=== PATIENT | male | born 1965 | race Caucasian/White ===

== ENCOUNTER 2016-11-26 18:17 | Emergency (ER) | payer OTHER ==
--- NOTE | 2016-11-26 19:16 | ED ORDER SUMMARY ---
..... Patient: STEWART GAR OrderSheet [facility] VisitID: [id number] [place] [address] 51y, M Registration Date/Time: 11/26/2016 ORDER SHEET Weight: 99.7 kg (stated) Allergies: None GENERAL ORDERS: Splint (UE) (Left) (Metal / foam, Volar) (19:13 11/26/2016 Mp GOMEZ) (19:31 Yaa) Dress Wounds (19:14 11/26/2016 Mp GOMEZ) (19:31 Yaa) MEDICATION ORDERS: Tdap IM 0.5 mL (NOW, per protocol) (18:29 11/26/2016 Alvin R.N. per protocol) (18:38 Alvin R.N.) IV FLUIDS: ORDER SHEET NOTES: [Electronically signed by Abby Dutton R.N. (19:42 11/26/2016)] [Electronically signed by Eric Marcos MD (07:43 11/30/2016)] [Electronically locked/signed by Abby Dutton R.N. (19:42 11/26/2016)]
--- NOTE | 2016-11-26 19:16 | ED ORDER SUMMARY ---
..... Patient: STEWART GAR OrderSheet [facility] VisitID: [id number] [place] [address] 51y, M Registration Date/Time: 11/26/2016 ORDER SHEET Weight: 99.7 kg (stated) Allergies: None GENERAL ORDERS: Splint (UE) (Left) (Metal / foam, Volar) (19:13 11/26/2016 Mp GOMEZ) (19:31 Yaa) Dress Wounds (19:14 11/26/2016 Mp GOMEZ) (19:31 Yaa) MEDICATION ORDERS: Tdap IM 0.5 mL (NOW, per protocol) (18:29 11/26/2016 Alvin R.N. per protocol) (18:38 Alvin R.N.) IV FLUIDS: ORDER SHEET NOTES: [Electronically signed by Abby Dutton R.N. (19:42 11/26/2016)] [Electronically signed by Eric Marcos MD (07:43 11/30/2016)] [Electronically locked/signed by Abby Dutton R.N. (19:42 11/26/2016)]
--- NOTE | 2016-11-26 19:16 | ED NURSING NOTES ---
Clinical Report - Nurses [facility] [address] [place] [address] 11/26/2016 18:20 [id number] Triage time 18:Nov 26 2016. Acuity: LEVEL 4. Chief Complaint: LACERATION. 18:25 11/26/16. 18:11/26/16. Alert. ( Pt cut left pointer finger with a razor blade). ENRIQUE COMA SCORE: Enrique Coma Scale: 15- eyes open spontaneously (4); best verbal response- oriented x 4 (5); best motor response- obeys commands (6). --18:28 Jonny Weaver R.N. 18:24 11/26/16. BP: 201/106. HR: 67. RR: 18. O2 saturation: 98% on room air. Temp: 98.5 F (oral). Pain level now: 0/10. --18:28 Jonny Weaver R.N. Weight: 99.7 kg stated. Height/Length: 70 inches Per Patient. BMI: 31.5. --18:24 Jonny Weaver R.N. Medications Lisinopril Oral (Last dose was in May 2016). --18:27 Jonny Weaver R.N. The following entry was struck and corrected by Jonny Weaver R.N., 18:27 (11/26/16) Reason for correction - other(correction). <<STRICKEN ENTRY-- Lisinopril Oral. --18:27 Jonny Weaver R.N. --END STRIKE>>. Medication/allergy information source: the patient. --18:28 Jonny Weaver R.N. Allergies None. --18:27 Jonny Weaver R.N. History Arrived by private vehicle. Historian: patient. Accompanied by family. Primary physician (RUSSEL DOLL). 18:25 11/26/16. This occurred just prior to arrival. Treatment DEPUTY JUVENILE OFFICER: None. PAST MEDICAL HX: Tetanus status: unknown. Immunizations: up-to-date. SOCIAL HX: Never smoker. Occasional alcohol use. No drug use. No infectious disease exposure. ABUSE ASSESSMENT: No report of abuse. FALL RISK ASSESSMENT: Fall risk assessment completed. No fall risk identified. NUTRITIONAL RISK ASSESSMENT: The nutritional risk assessment revealed no deficiencies. FUNCTIONAL ASSESSMENT: Functional assessment: no impairments noted. LEARNING NEEDS ASSESSMENT: The learning needs assessment revealed no barriers. SKIN INTEGRITY ASSESSMENT: Skin integrity risk assessment completed. No skin integrity risk identified. --18:28 Jonny Weaver R.N. PROBLEMS: Hypertension. --18:27 Jonny Weaver R.N. Tremor. --18:46 Jonny Weaver R.N. ADDITIONAL SURGERIES: Hernia Repair. --18:58 Jonny Weaver R.N. Assessment 18:25 11/26/16. --18:28 Jonny Weaver R.N. Interventions 18:11/26/16. 18:11/26/16. ID and allergy band on patient. To treatment room. --18:28 Jonny Weaver R.N. PHYSICAL ASSESSMENT 18:29 11/26/16. Ambulatory to room. GENERAL / NEURO / PSYCH: Alert. Oriented X 4. Appears in no acute distress. RESPIRATORY: Respirations not labored. CVS: Capillary refill less than 2 seconds. EXTREMITIES: Tip of left index finger: laceration. SKIN: Skin is warm and dry. --18:29 Jonny Weaver R.N. NURSING PROGRESS NOTES 18:11/26/16. The plan of care for this patient has been created. Reassurance given. Two patient identifiers checked. Call light placed in reach. Side rails up x 2. Bed placed in lowest position. Brakes of bed on. --18:29 Jonny Weaver R.N. 18:29 11/26/16. Patient ready for evaluation- chart flagged. --18:29 Jonny Weaver R.N. 18:33 11/26/2016 TDAP IM 0.5 mL given. (Lot#: [id number], expiration date: 10/16/2018, Detonator Assembler: sanofi pasteur). Given in the right deltoid. Allergies verified and confirmed 5 rights. Vaccine information statement provided to the patient. --18:38 Jonny Weaver R.N. 18:38 11/26/16. ( Soaking left hand in water and hibiclens). --18:39 Jonny Weaver R.N. 19:21 11/26/16. Care transferred and report given. --19:21 Jonny Weaver R.N. Metal and volar finger splint applied to left index finger by gisselle (1932). --19:33 Laurie Montano Applied dressing, following the application of antibiotic ointment (bacitracin). Secured with tube gauze. --19:34 Laurie Montano. DISPOSITION / DISCHARGE Departure time: 1939. Condition at departure: improved and stable. No learning barriers present. Discharge instructions provided and reviewed with the patient. Reviewed wound care instructions. Reviewed referrals (pt own primary care). Activity restrictions (minimal use of injured extremity) reviewed. Patient verbalized understanding. Written instructions provided in Emirati. The patient was discharged home and accompanied by spouse. He left the Emergency Department ambulatory and via private vehicle. Patient driving. --19:41 Abby Dutton R.N. 19:40 11/26/16. BP: 180/101. HR: 84. RR: 18. O2 saturation: 100%. Temp: deferred. Pain level now: 0/10. Additional comments: aware of BP and OK with DC. --19:41 Abby Dutton R.N. Locked/Released at 11/26/2016 19:42 by Abby Dutton R.N.
--- NOTE | 2016-11-26 19:16 | ED CLINICAL REPORT ---
Clinical Report - Physicians/Mid Levels [facility] [address] [place] [address] 11/26/2016 18:20 [id number] Time Seen: 18:27 Nov 26 2016. Arrived- By private vehicle. Historian- patient. CPT: ER phys charges level 3 plus (#436296). Up to 2.5 cm simple scalp, neck (#[id number]). HISTORY OF PRESENT ILLNESS Chief Complaint: Injury to the left index finger. The injury happened just prior to arrival. The patient sustained a laceration. Patient is experiencing mild pain. No other injury. REVIEW OF SYSTEMS The patient sustained a laceration. No swelling, tingling, numbness, weakness or foreign body. All systems otherwise negative, except as recorded above. PAST HISTORY See nurses notes. Tetanus immunization status is unknown. Hypertension. Medications: Lisinopril Oral (Last dose was in May 2016). Allergies: None. ADDITIONAL NOTES The nursing notes have been reviewed. PHYSICAL EXAM Vital Signs: 11/26/2016 18:24 BP: 201/106. HR: 67. RR: 18. O2 saturation: 98%. Temp: 98.5 F. Pain level now: 0/10. Skin: Skin warm and dry. Extremities: Left index finger: moderate tenderness and subcutaneous laceration of the distal phalanx- SEE LACERATION PROCEDURE NOTE. Neurovascular intact distally. No swelling. No limitation in movement. No wrist injury. Extremities otherwise negative. Neuro, Vascular and Tendons: Vascular status intact. Sensation intact. Motor intact. Tendon function intact. No functional tendon deficit or tendon injury seen. Neuro: Oriented X 3. No motor deficit. No sensory deficit. PROGRESS AND PROCEDURES Laceration Repair: Location: left index finger. Length: 2.0cm. Complexity: simple (local anesthesia used and sutured). Wound depth/shape- subcutaneous and linear. Wound is clean. Distal neuro/vascular/tendon status normal. No tendon deficit or laceration. Local anesthesia provided using 2% lidocaine with bicarb. Prepped with Hibiclens. Wound explored, cleansed, irrigated and examined to the base in bloodless field extensively with normal saline. Closure of skin: interrupted 5-0 (5 sutures). Post-procedure: he is stable and there are no complications. Bleeding is controlled and neuro-vascular status is intact distal to the wound. Dressing applied. Tetanus immunization up-to-date. Estimated blood loss: 1 mL. Course of Care: Discussed need for follow up blood pressure check. Patient/family counseled. Disposition: Discharged. Condition: stable and improved. CLINICAL IMPRESSION Single deep laceration to the left index finger.No foreign body present or left fingernail injury. Essential hypertension. INSTRUCTIONS Elevate affected areas above chest level today, for one days. Wear aluminum splint until released. Protect wound and keep wound area clean. Change dressing twice daily. Keep wounds dry. You may wash wounds briefly, then dry. Apply neosporin twice daily. Sutures should be removed in ten days. Limit use of your left hand until released. Warnings: GENERAL WARNINGS: Return or contact your physician immediately if your condition worsens or changes unexpectedly, if not improving as expected, or if other problems arise. Your Current Medications: CONTINUE TAKING THE FOLLOWING MEDICATIONS: Lisinopril Oral : Last dose was in May 2016. OTC Medications: Acetaminophen (available over the counter): take according to label instructions. Follow-up: Follow up with your doctor in ten days. Call for an appointment. Understanding of the discharge instructions verbalized by patient. Discharge instructions reviewed with and understanding was verbalized by spouse. (Electronically signed by Eric Marcos MD 11/30/2016 7:44)
--- NOTE | 2016-11-26 19:16 | ED CLINICAL REPORT ---
Clinical Report - Physicians/Mid Levels [facility] [address] [place] [address] 11/26/2016 18:20 [id number] Time Seen: 18:27 Nov 26 2016. Arrived- By private vehicle. Historian- patient. CPT: ER phys charges level 3 plus (#[id number]). Up to 2.5 cm simple scalp, neck (#[id number]). HISTORY OF PRESENT ILLNESS Chief Complaint: Injury to the left index finger. The injury happened just prior to arrival. The patient sustained a laceration. Patient is experiencing mild pain. No other injury. REVIEW OF SYSTEMS The patient sustained a laceration. No swelling, tingling, numbness, weakness or foreign body. All systems otherwise negative, except as recorded above. PAST HISTORY See nurses notes. Tetanus immunization status is unknown. Hypertension. Medications: Lisinopril Oral (Last dose was in May 2016). Allergies: None. ADDITIONAL NOTES The nursing notes have been reviewed. PHYSICAL EXAM Vital Signs: 11/26/2016 18:24 BP: 201/106. HR: 67. RR: 18. O2 saturation: 98%. Temp: 98.5 F. Pain level now: 0/10. Skin: Skin warm and dry. Extremities: Left index finger: moderate tenderness and subcutaneous laceration of the distal phalanx- SEE LACERATION PROCEDURE NOTE. Neurovascular intact distally. No swelling. No limitation in movement. No wrist injury. Extremities otherwise negative. Neuro, Vascular and Tendons: Vascular status intact. Sensation intact. Motor intact. Tendon function intact. No functional tendon deficit or tendon injury seen. Neuro: Oriented X 3. No motor deficit. No sensory deficit. PROGRESS AND PROCEDURES Laceration Repair: Location: left index finger. Length: 2.0cm. Complexity: simple (local anesthesia used and sutured). Wound depth/shape- subcutaneous and linear. Wound is clean. Distal neuro/vascular/tendon status normal. No tendon deficit or laceration. Local anesthesia provided using 2% lidocaine with bicarb. Prepped with Hibiclens. Wound explored, cleansed, irrigated and examined to the base in bloodless field extensively with normal saline. Closure of skin: interrupted 5-0 (5 sutures). Post-procedure: he is stable and there are no complications. Bleeding is controlled and neuro-vascular status is intact distal to the wound. Dressing applied. Tetanus immunization up-to-date. Estimated blood loss: 1 mL. Course of Care: Discussed need for follow up blood pressure check. Patient/family counseled. Disposition: Discharged. Condition: stable and improved. CLINICAL IMPRESSION Single deep laceration to the left index finger.No foreign body present or left fingernail injury. Essential hypertension. INSTRUCTIONS Elevate affected areas above chest level today, for one days. Wear aluminum splint until released. Protect wound and keep wound area clean. Change dressing twice daily. Keep wounds dry. You may wash wounds briefly, then dry. Apply neosporin twice daily. Sutures should be removed in ten days. Limit use of your left hand until released. Warnings: GENERAL WARNINGS: Return or contact your physician immediately if your condition worsens or changes unexpectedly, if not improving as expected, or if other problems arise. Your Current Medications: CONTINUE TAKING THE FOLLOWING MEDICATIONS: Lisinopril Oral : Last dose was in May 2016. OTC Medications: Acetaminophen (available over the counter): take according to label instructions. Follow-up: Follow up with your doctor in ten days. Call for an appointment. Understanding of the discharge instructions verbalized by patient. Discharge instructions reviewed with and understanding was verbalized by spouse. (Electronically signed by Eric Marcos MD 11/30/2016 7:44)
--- NOTE | 2016-11-26 19:16 | ED NURSING NOTES ---
Clinical Report - Nurses [facility] [address] [place] [address] 11/26/2016 18:20 [id number] Triage time 18:Nov 26 2016. Acuity: LEVEL 4. Chief Complaint: LACERATION. 18:25 11/26/16. 18:11/26/16. Alert. ( Pt cut left pointer finger with a razor blade). ENRIQUE COMA SCORE: Enrique Coma Scale: 15- eyes open spontaneously (4); best verbal response- oriented x 4 (5); best motor response- obeys commands (6). --18:28 Jonny Weaver R.N. 18:24 11/26/16. BP: 201/106. HR: 67. RR: 18. O2 saturation: 98% on room air. Temp: 98.5 F (oral). Pain level now: 0/10. --18:28 Jonny Weaver R.N. Weight: 99.7 kg stated. Height/Length: 70 inches Per Patient. BMI: 31.5. --18:24 Jonny Weaver R.N. Medications Lisinopril Oral (Last dose was in May 2016). --18:27 Jonny Weaver R.N. The following entry was struck and corrected by Jonny Weaver R.N., 18:27 (11/26/16) Reason for correction - other(correction). <<STRICKEN ENTRY-- Lisinopril Oral. --18:27 Jonny Weaver R.N. --END STRIKE>>. Medication/allergy information source: the patient. --18:28 Jonny Weaver R.N. Allergies None. --18:27 Jonny Weaver R.N. History Arrived by private vehicle. Historian: patient. Accompanied by family. Primary physician (RUSSEL DOLL). 18:25 11/26/16. This occurred just prior to arrival. Treatment PARK MAINTENANCE TECHNICIAN: None. PAST MEDICAL HX: Tetanus status: unknown. Immunizations: up-to-date. SOCIAL HX: Never smoker. Occasional alcohol use. No drug use. No infectious disease exposure. ABUSE ASSESSMENT: No report of abuse. FALL RISK ASSESSMENT: Fall risk assessment completed. No fall risk identified. NUTRITIONAL RISK ASSESSMENT: The nutritional risk assessment revealed no deficiencies. FUNCTIONAL ASSESSMENT: Functional assessment: no impairments noted. LEARNING NEEDS ASSESSMENT: The learning needs assessment revealed no barriers. SKIN INTEGRITY ASSESSMENT: Skin integrity risk assessment completed. No skin integrity risk identified. --18:28 Jonny Weaver R.N. PROBLEMS: Hypertension. --18:27 Jonny Weaver R.N. Tremor. --18:46 Jonny Weaver R.N. ADDITIONAL SURGERIES: Hernia Repair. --18:58 Jonny Weaver R.N. Assessment 18:25 11/26/16. --18:28 Jonny Weaver R.N. Interventions 18:11/26/16. 18:11/26/16. ID and allergy band on patient. To treatment room. --18:28 Jonny Weaver R.N. PHYSICAL ASSESSMENT 18:29 11/26/16. Ambulatory to room. GENERAL / NEURO / PSYCH: Alert. Oriented X 4. Appears in no acute distress. RESPIRATORY: Respirations not labored. CVS: Capillary refill less than 2 seconds. EXTREMITIES: Tip of left index finger: laceration. SKIN: Skin is warm and dry. --18:29 Jonny Weaevr R.N. NURSING PROGRESS NOTES 18:11/26/16. The plan of care for this patient has been created. Reassurance given. Two patient identifiers checked. Call light placed in reach. Side rails up x 2. Bed placed in lowest position. Brakes of bed on. --18:29 Jonny Weaver R.N. 18:29 11/26/16. Patient ready for evaluation- chart flagged. --18:29 Jonny Weaver R.N. 18:33 11/26/2016 TDAP IM 0.5 mL given. (Lot#: [id number], expiration date: 10/16/2018, Podiatry Doctor: sanofi pasteur). Given in the right deltoid. Allergies verified and confirmed 5 rights. Vaccine information statement provided to the patient. --18:38 Jonny Weaver R.N. 18:38 11/26/16. ( Soaking left hand in water and hibiclens). --18:39 Jonny Weaver R.N. 19:21 11/26/16. Care transferred and report given. --19:21 Jonny Weaver R.N. Metal and volar finger splint applied to left index finger by gisselle (1932). --19:33 Laurie Montano Applied dressing, following the application of antibiotic ointment (bacitracin). Secured with tube gauze. --19:34 Laurie Montano. DISPOSITION / DISCHARGE Departure time: 1939. Condition at departure: improved and stable. No learning barriers present. Discharge instructions provided and reviewed with the patient. Reviewed wound care instructions. Reviewed referrals (pt own primary care). Activity restrictions (minimal use of injured extremity) reviewed. Patient verbalized understanding. Written instructions provided in Portuguese. The patient was discharged home and accompanied by spouse. He left the Emergency Department ambulatory and via private vehicle. Patient driving. --19:41 Abby Dutton R.N. 19:40 11/26/16. BP: 180/101. HR: 84. RR: 18. O2 saturation: 100%. Temp: deferred. Pain level now: 0/10. Additional comments: aware of BP and OK with DC. --19:41 Abby Dutton R.N. Locked/Released at 11/26/2016 19:42 by Abby Dutton R.N.
--- NOTE | 2016-11-30 07:44 | ED MED RECONCILIATION SUMMARY ---
Patient: TSEWART GAR Medication Reconciliation Report [facility] VisitID: [id number] [address] [place] [address] 51y, M Registration Date/Time: 11/26/2016 Weight: 99.7 kg Height/Length: 70 in. BMI: 31.5 ALLERGIES: None The patient's Home Medications are listed below: CONTINUE TAKING THE FOLLOWING MEDICATIONS: Lisinopril Oral, Last dose was in May 2016 The source(s) of the original Home Medication information: patient The following Medications were given to the patient in the Emergency Department: TDAP [IM] IM 0.5 mL, administered: 11/26/2016 6:33:00 PM The following Medications were prescribed to the patient: Acetaminophen (available over the counter): take according to label instructions. -- Eric Marcos MD
--- NOTE | 2016-11-30 07:44 | ED DISCHARGE INSTRUCTIONS ---
Patient: STEWART GAR General Instructions Formerly [facility] VisitID: [id number] [place] [address] 51y, M Registration Date/Time: 11/26/2016 Single deep laceration to the left index finger.No foreign body present or left fingernail injury. Essential hypertension. INSTRUCTIONS Elevate affected areas above chest level today, for one days. Wear aluminum splint until released. Protect wound and keep wound area clean. Change dressing twice daily. Keep wounds dry. You may wash wounds briefly, then dry. Apply neosporin twice daily. Sutures should be removed in ten days. Limit use of your left hand until released. Warnings: GENERAL WARNINGS: Return or contact your physician immediately if your condition worsens or changes unexpectedly, if not improving as expected, or if other problems arise. Your Current Medications: CONTINUE TAKING THE FOLLOWING MEDICATIONS: Lisinopril Oral : Last dose was in May 2016. OTC Medications: Acetaminophen (available over the counter): take according to label instructions. Follow-up: Follow up with your doctor in ten days. Call for an appointment. Understanding of the discharge instructions verbalized by patient. Discharge instructions reviewed with and understanding was verbalized by spouse. ADDITIONAL INFORMATION Laceration (All Closures) Alaceration is a cut through the skin. This will usually require stitches (sutures) or rosi if it is deep. Minor cuts may be treated with a surgical tape closure orskin glue. Home care The following guidelines will help you care for your laceration at home: Extremity, face, or trunk wounds Keep the wound clean and dry. If a bandage was applied and it becomes wet or dirty, replace it. Otherwise, leave it in place for the first 24 hours. If stitches or rosi were used, clean the wound daily. After removing the bandage, wash the area with soap and water. Use a wet cotton swab to loosen and remove any blood or crust that forms. The doctor may prescribe an antibiotic cream or ointment to prevent infection. Do not stop taking this medication until you have finished the prescribed course or the doctor tells you to stop. The doctor may also prescribe medications for pain. Follow the doctors instructions for taking these medications. You may remove the bandage to shower as usual after the first 24 hours, but do not soak the area in water (no swimming) until the stitches or rosi are removed. If surgical tape was used, keep the area clean and dry. If it becomes wet, blot it dry with a towel. If skin glue was used, do not scratch, rub, or pick at the adhesive film. Do not place tape directly over the film. Do not apply liquid, ointment, or creams to the wound while the film is in place. Do not clean the wound with peroxide and do not apply ointments. Avoid activities that cause heavy sweating until the film has fallen off. Protect the wound from prolonged exposure to sunlight or tanning lamps. You may shower as usual but do not soak the wound in water (no baths or swimming). The film will fall off by itself in 510 days. Scalp wounds During the first two days, you may carefully rinse your hair in the shower to remove blood, glass or dirt particles. After two days, you may shower and shampoo your hair normally. Do not soak your scalp in the tub or go swimming until the stitches or rosi have been removed. Talk with your doctor before applying any antibiotic ointment to the wound. Mouth wounds Eat soft foods to reduce pain. If the cut is inside of your mouth, clean by rinsing after each meal and at bedtime with a mixture of equal parts water and hydrogen peroxide (do not swallow!). Or, you can use a cotton swab to directly apply hydrogen peroxide onto the cut. Mouth wounds can be painful when eating. You may use an [id number] local numbing solution for pain relief. If this is not available, you may use any numbing solution for teething babies. You may apply this directly to the sores with a cotton-tip swab or with your finger. Follow-up care Follow up with your health care provider. Most skin wounds heal within ten days. Mouth and facial wounds heal within five days. However, even with proper treatment, a wound infection may sometimes occur. Therefore, you should check the wound daily for signs of infection listed below. Stitches should be removed from the face within five days; stitches and rosi should be removed from other parts of the body within 714 days. If dissolving stitches were used in the mouth, these will fall out or dissolve without the need for removal. If tape closures were used, remove them yourself if they have not fallen off after 7 days. Ifskin glue was used, the film will fall off by itself in 510 days. When to seek medical care Get prompt medical attention if any of these occur: Bleeding not controlled by direct pressure Signs of infection, including increasing pain in the wound, increasing wound redness or swelling, or pus coming from the wound Fever of 100.4F (38C) or higher, or as directed by your health care provider Stitches or rosi come apart or fall out or surgical tape falls off before 7 days Wound edges re-open Laceration, Extremity (Sutures, [place], Or Tape) A laceration is a cut through the skin. This will usually require stitches (sutures) or rosi if it is deep. Minor cuts may be treated with surgical tape closures. Home care The following guidelines will help you care for your laceration at home: Keep the wound clean and dry. If a bandage was applied and it becomes wet or dirty, replace it. Otherwise, leave it in place for the first 24 hours, then change it once a day or as directed. If stitches or rosi were used, clean the wound daily: After removing the bandage, wash the area with soap and water. Use a wet cotton swab to loosen and remove any blood or crust that forms. After cleaning, keep the wound clean and dry. Talk with your doctor before applying any antibiotic ointment to the wound. Reapply the bandage. You may remove the bandage to shower as usual after the first 24 hours, but do not soak the area in water (no swimming) until the stitches or rosi are removed. If surgical tape closures were used, keep the area clean and dry. If it becomes wet, blot it dry with a towel. The doctor may prescribe an antibiotic cream or ointment to prevent infection. Do not stop taking this medication until you have finished the prescribed course or the doctor tells you to stop. The doctor may also prescribe medications for pain. Follow the doctors instructions for taking these medications. If you have chronic liver or kidney disease or ever had a stomach ulcer or GI bleeding, talk with your doctor before using these medicines. Follow-up care Follow up with your health care provider. Most skin wounds heal within ten days. However, an infection may sometimes occur despite proper treatment. Therefore, check the wound daily for the signs of infection listed below. Stitches and rosi should be removed within 714 days. If surgical tape closures were used, you may remove them after 10 days, if they have not fallen off by then. Notify your doctor if you notice persistent numbness or weakness in the injured extremity. (Note:A radiologist will review any X-rays that were taken. We will notify you of any new findings that may affect your care.) When to seek medical care Get prompt medical attention if any of these occur: Increasing pain in the wound Redness, swelling, or pus coming from the wound Fever of 100.4F (38C) or higher, or as directed by your health care provider If stitches or rosi come apart or fall out before your next appointment If the surgical tape closures fall off within seven days, or the wound edges re-open Bleeding not controlled by direct pressure High Blood Pressure -- To Be Confirmed [No Tx] Your blood pressure was higher today than normal. Sometimes anxiety or pain can cause a temporary rise in blood pressure that later returns to normal. If your blood pressure is high on one measurement, this does not mean that you have hypertension (a chronic illness). However, you must have your blood pressure measured again within the next few days to find out if its still high. A normal blood pressure is 120/80 or less. The first (top) number is the "systolic" pressure. The second (bottom) number is the "diastolic" pressure. Hypertension exists when either the top number is 140 or higher, OR the bottom number is 90 or higher on repeated measurements. Blood pressure in the range of 120-140 (systolic) or 80-89 (diastolic) is considered "pre-hypertension". This means your are at risk for getting hypertension. You should have regular blood pressure checks to be sure your blood pressure is not rising. Home Care: Measure your blood pressure on 3 different days and write down the results. This can be done at your doctor's office or this facility. Some pharmacies and grocery stores offer automated blood pressure machines for your use. Follow Up: If your blood pressure is "high" (over 120/80) on 2 out of 3 days, you will need to follow up with your doctor for further evaluation and treatment. DO NOT PUT THIS OFF! Untreated high blood pressure increases the risk for heart attack, also known as acute myocardial infarction, or AMI, and stroke. It is a treatable condition. Get Prompt Medical Attention if any of the following occur: Chest pain or shortness of breath Severe headache Throbbing or rushing sound in the ears Nosebleed Sudden severe abdominal pain Extreme drowsiness, confusion or fainting Dizziness or vertigo (dizziness with spinning sensation) Weakness of an arm or leg or one side of the face Difficulty with speech or vision Laceration, Extremity (Sutures, Rosi, Or Tape) A laceration is a cut through the skin. This will usually require stitches (sutures) or rosi if it is deep. Minor cuts may be treated with surgical tape closures. Home care The following guidelines will help you care for your laceration at home: Keep the wound clean and dry. If a bandage was applied and it becomes wet or dirty, replace it. Otherwise, leave it in place for the first 24 hours, then change it once a day or as directed. If stitches or rosi were used, clean the wound daily: After removing the bandage, wash the area with soap and water. Use a wet cotton swab to loosen and remove any blood or crust that forms. After cleaning, keep the wound clean and dry. Talk with your doctor before applying any antibiotic ointment to the wound. Reapply the bandage. You may remove the bandage to shower as usual after the first 24 hours, but do not soak the area in water (no swimming) until the stitches or rosi are removed. If surgical tape closures were used, keep the area clean and dry. If it becomes wet, blot it dry with a towel. The doctor may prescribe an antibiotic cream or ointment to prevent infection. Do not stop taking this medication until you have finished the prescribed course or the doctor tells you to stop. The doctor may also prescribe medications for pain. Follow the doctors instructions for taking these medications. If you have chronic liver or kidney disease or ever had a stomach ulcer or GI bleeding, talk with your doctor before using these medicines. Follow-up care Follow up with your health care provider. Most skin wounds heal within ten days. However, an infection may sometimes occur despite proper treatment. Therefore, check the wound daily for the signs of infection listed below. Stitches and rosi should be removed within 714 days. If surgical tape closures were used, you may remove them after 10 days, if they have not fallen off by then. Notify your doctor if you notice persistent numbness or weakness in the injured extremity. (Note:A radiologist will review any X-rays that were taken. We will notify you of any new findings that may affect your care.) When to seek medical care Get prompt medical attention if any of these occur: Increasing pain in the wound Redness, swelling, or pus coming from the wound Fever of 100.4F (38C) or higher, or as directed by your health care provider If stitches or rosi come apart or fall out before your next appointment If the surgical tape closures fall off within seven days, or the wound edges re-open Bleeding not controlled by direct pressure You have been given the following additional information: Laceration, All Laceration, Extrem (Suture, Staple, Or Tape) Hypertension, To Be Confirmed Laceration, Extrem (Suture, Staple, Or Tape) Limit use of your left hand until released. (Electronically signed by Eric Marcos MD 11/30/2016 7:44)
--- NOTE | 2016-11-30 07:44 | ED MED RECONCILIATION SUMMARY ---
Patient: STEWART GAR Medication Reconciliation Report [facility] VisitID: [id number] [address] [place] [address] 51y, M Registration Date/Time: 11/26/2016 Weight: 99.7 kg Height/Length: 70 in. BMI: 31.5 ALLERGIES: None The patient's Home Medications are listed below: CONTINUE TAKING THE FOLLOWING MEDICATIONS: Lisinopril Oral, Last dose was in May 2016 The source(s) of the original Home Medication information: patient The following Medications were given to the patient in the Emergency Department: TDAP [IM] IM 0.5 mL, administered: 11/26/2016 6:33:00 PM The following Medications were prescribed to the patient: Acetaminophen (available over the counter): take according to label instructions. -- Eric Marcos MD
--- NOTE | 2016-11-30 07:44 | ED MAR SUMMARY ---
..... Medication Administration Record [facility] [address] [place] [address] Patient: STEWART GAR Visit ID: [id number] 51y, M Weight: 99.7 kg Height/Length: 70 in BMI: 31.5 ALLERGIES: None Given 18:33 11/26/2016 Jonny Weaver R.N. Medication Administered: TDAP [IM], Dose: 0.5 mL IM. Medication Ordered: Tdap IM 0.5 mL (NOW, per protocol).
--- NOTE | 2016-11-30 07:44 | ED MAR SUMMARY ---
..... Medication Administration Record [facility] [address] [place] [place] [address] Patient: STEWART GAR Visit ID: [id number] 51y, M Weight: 99.7 kg Height/Length: 70 in BMI: 31.5 ALLERGIES: None Given 18:33 11/26/2016 Jonny Weaver R.N. Medication Administered: TDAP [IM], Dose: 0.5 mL IM. Medication Ordered: Tdap IM 0.5 mL (NOW, per protocol).
== END 2016-11-26 19:40 | disposition home or self-care (01) ==
LOC: ED SRH 18:17
DX: S61.211A Laceration without foreign body of left index finger without damage to nail, initial encounter (principal); W26.8XXA Contact with other sharp object(s), not elsewhere classified, initial encounter; Y93.9 Activity, unspecified; Y92.9 Unspecified place or not applicable; Y99.9 Unspecified external cause status; Z23 Encounter for immunization; I10 Essential (primary) hypertension; Z79.899 Other long term (current) drug therapy